=== PATIENT | male | born 1960 | race Caucasian/White ===

== ENCOUNTER 2016-10-31 16:44 | Emergency (ER) | payer OTHER ==
[2016-10-31 16:49] VITALS: BP 128/86; PULSE 81; RESP 16; O2SAT 100
--- NOTE | 2016-10-31 17:01 | ED.REPORT ---
HPI-General Illness Date of Service Oct 31, 2016 ED Provider: Tariq Zuleta MD Pt is a 56 y/o male presenting to the ED via police c/o left foot pain onset yesterday. He is here for fit for correction assessment. He believes he injured his foot by jumping out of his pickup while it was not moving yesterday. He also reports mild right shoulder and right neck pain. He has been able to ambulate normally since the incident. He denies significant head injury or LOC, numbness , weakness, rash, or any other symptoms. Nursing Notes Stated Complaint: FIT FOR [facility] Chief Complaint: General Complaint Nursing Notes Reviewed: Yes Allergies: Coded Allergies: codeine (Verified Allergy, Intermediate, Hives, 02/11/16) ibuprofen (Verified Allergy, Intermediate, GASTRIC UPSET, 02/11/16) General Time Seen by MD: 16:57 Chief Complaint Multip medical complaints Hx Obtained From: Patient, Police Arrived By: Police Sudden in Onset?: No Onset Occurred: Yesterday Symptom Duration: Since onset Location: : Foot left: Shoulder right Quality: Painful Severity: Current: Mild Severity: Maximum: Mild Past Medical History Past Medical History Hep C Past Surgical History cholesterma Smoking History Current Every Day Smoker Social History Alcohol Use: "Social" Drug Use: Other 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 Physical Exam Vital Signs Vital Signs Date Time Temp Pulse Resp B/P Pulse Ox O2 Delivery O2 Flow Rate FiO2 10/31/16 16:49 36.7 81 16 128/86 100 Room Air Initial VS: Reviewed Head / Eyes: Atraumatic, Normocephalic, PERRL ENT: Mucous membranes moist, Conjunctiva normal, No scleral icterus Respiratory: Breath sounds normal, Clear to auscultation, No respiratory distress Cardiovascular: Regular rate & rhythm, Heart sounds normal, Intact distal pulses Skin: Warm, Dry, No cyanosis Neurologic: Alert, Oriented, Nonfocal Psychiatric: Mood/affect normal, Behavior normal, Normal thought content General/Constitutional: Awake, Alert, No acute distress, Cooperative, Not toxic appearing Neck: No meningismus, Full range of motion, No swelling, Non-tender, No midline vertebral tend Mild tenderness over right trapezius Upper Extremities Upper Extremity / MS: No erythema, No deformity, Neurologic intact, Vascular intact RUE: Sensation intact over deltoid, subjectively decreased. Ankle / Foot: Atraumatic, Full range of motion, No deformity, Neurologic intact , Vascular intact LLE: Tender over medial and lateral malleoli Good DP and PT pulses Interpretation & Diagnostics X-Ray Interpretation Xray Interpretation: IMPRESSION: No acute fracture. No osseous lesion. If clinical suspicion and/or symptoms persist, further assessment with repeat plainfilms, or advanced imaging (e.g., CT, MRI, or bone scan) may be helpful for further assessment. Dictated by: Erasto Marino M.D. on 10/31/2016 at 17:52 Approved by: Erasto Marino M.D. on 10/31/2016 at 17:53 Study Performed: 3 view X-Ray Ordered: Ankle left Interpretation / Wet Read by: Interpret - Radiologist Xray Interpretation: IMPRESSION: No acute fracture. No osseous lesion. If clinical suspicion and/or symptoms persist, further assessment with repeat plainfilms, or advanced imaging (e.g., CT, MRI, or bone scan) may be helpful for further assessment. Dictated by: Erasto Marino M.D. on 10/31/2016 at 17:52 Approved by: Erasto Marino M.D. on 10/31/2016 at 17:52 Study Performed: 3 view X-Ray Ordered: Shoulder right Interpretation / Wet Read by: Interpret - Radiologist Re-Eval/Medical Decision Med Decision/Clinical Course Pt is a 56 y/o male presenting to the ED via police c/o left foot pain onset yesterday. He is here for fit for correction assessment. He believes he injured his L ankle by jumping out of his pickup while it was not moving yesterday. He also reports mild right shoulder and right neck pain. He has been able to ambulate normally since the incident. He denies significant head injury or LOC, numbness , weakness, rash, or any other symptoms. Here in the emergency department he is afebrile and hemodynamically stable. He is neurologically/vascularly intact in all 4 extremities. Regarding his left foot I have very low suspicion for any acute fracture. History and presentation most consistent with mild sprain. Plain films demonstrated no acute fracture. Advised to apply ice packs, elevate extremity and use Power wrap as needed. He is ambulating with relative ease and I do not feel that immobilization of the ankle is necessary. Regarding his shoulder this pain is chronic in nature. Plain films again demonstrated no acute fracture dislocation. He is neurovascularly intact in the affected extremity. Recommend ice packs, primary care physician follow-up. He has some mild tenderness over the right trapezius with no midline cervical tenderness, deformity. He has not struck his head or lost consciousness. Mechanism of injury is not suspicious for acute cervical fracture. I do not feel that imaging studies of the neck are indicated. Remainder of full head to toe survey reveals no other associated injuries. I feel that the patient is appropriate for discharge to police custody. Follow-up and return precautions were reviewed in detail and he is discharged in stable condition. Counseled Regarding: Diagnosis, Lab results, Need for follow-up, When/why to return to ED Discharge & Departure Primary Impression: Fall Encounter type: initial encounter Qualified Code: W19.XXXA - Unspecified fall, initial encounter Additional Impressions: Left ankle pain Chronicity: acute Qualified Code: M25.572 - Pain in left ankle and joints of left foot Right shoulder pain Chronicity: chronic Qualified Code: M25.511 - Pain in right shoulder Disposition: Home Discharge Condition All VS Reviewed: Yes Condition: Stable Patient Instructions: Contusions in Adults (ED) Additional Instructions: The x-rays showed no sign of fracture. Your pain may be caused by arthritis. Use ice to relieve pain or swelling. Return to the emergency department for any medical emergencies. Referrals: [facility] (PCP) Scribe Attestation Portions of this note were transcribed by Jonah Brooke. I, Dr. Zuleta personally performed the history, physical exam and medical decision-making; I reviewed and confirmed the accuracy of the information in the transcribed note. Signed by Doron Rios, 10/31/16 - 1800 Tariq Zuleta MD Oct 31, 2016 17:01 JONAH BROOKE Oct 31, 2016 17:06
--- NOTE | 2016-10-31 17:54 | DRSVH ---
PROCEDURE: X-RAY RIGHT SHOULDER, MINIMUM TWO VIEWS ([id number]) INDICATIONS: pain TECHNIQUE: 3 views of the shoulder were acquired. COMPARISON: None. FINDINGS: Bones: No fractures or dislocations. No suspicious bony lesions. Visualized ribs appear intact. C ervical fusion hardware is present. Soft tissues: No suspicious soft tissue calcifications. IMPRESSION: No acute fracture. No osseous lesion. If clinical suspicion and/or symptoms persist, fur ther assessment with repeat plainfilms, or advanced imaging (e.g., CT, MRI, or bone scan) may be help ful for further assessment. Dictated by: Erasto Marino M.D. on 10/31/2016 at 17:52 Approved by: Erasto Marino M.D. on 10/31/2016 at 17:52
--- NOTE | 2016-10-31 17:55 | DRSVH ---
PROCEDURE: X-RAY LEFT ANKLE, MINIMUM THREE VIEWS ([id number]) INDICATIONS: pain TECHNIQUE: 3 views of the ankle were acquired. COMPARISON: None. FINDINGS: Bones: No fractures or dislocations. Ankle mortise is normally aligned. No suspicious bony lesions . Soft tissues: No tibiotalar joint effusion. Achilles tendon appears normal. IMPRESSION: No acute fracture. No osseous lesion. If clinical suspicion and/or symptoms persist, fur ther assessment with repeat plainfilms, or advanced imaging (e.g., CT, MRI, or bone scan) may be help ful for further assessment. Dictated by: Erasto Marino M.D. on 10/31/2016 at 17:52 Approved by: Erasto Marino M.D. on 10/31/2016 at 17:53
== END 2016-10-31 18:09 | disposition home or self-care (01) ==
LOC: SED 16:44
DX: M25.572 Pain in left ankle and joints of left foot (principal); M25.511 Pain in right shoulder; V58.4XXA Person boarding or alighting a pick-up truck or van injured in noncollision transport accident, initial encounter; Y92.812 Truck as the place of occurrence of the external cause; Y93.39 Activity, other involving climbing, rappelling and jumping off; Y99.8 Other external cause status; I10 Essential (primary) hypertension; F17.200 Nicotine dependence, unspecified, uncomplicated; Z88.5 Allergy status to narcotic agent; Z88.6 Allergy status to analgesic agent